=== PATIENT | male | born 1975 | race Caucasian/White ===

== ENCOUNTER 2018-05-29 11:02 | Emergency (ER) | payer OTHER ==
[2018-05-29] MEDS: KETOROLAC 30 MG INJ IM (12:27)
[2018-05-29 12:51] LABS: ADD UMIC NO; UR ASCORBIC ACID NEGATIVE (NEGATIVE); UR BILIRUBIN (Dip) NEGATIVE (NEGATIVE); UR BLOOD (Dip) NEGATIVE (NEGATIVE); UR CLARITY CLEAR (CLEAR); UR COLOR YELLOW (YELLOW); UR GLUCOSE (Dip) NEGATIVE (NEGATIVE); UR KETONES (Dip) NEGATIVE (NEGATIVE); UR LEUKOCYTE ESTERASE (Dip) NEGATIVE Leu/ul (NEGATIVE); UR NITRITE (Dip) NEGATIVE (NEGATIVE); UR TOTAL PROTEIN (Dip) NEGATIVE (NEGATIVE); UR UROBILINOGEN (Dip) NEGATIVE (NEGATIVE)
== END 2018-05-29 13:45 | disposition home or self-care (01) ==
LOC: FTE 11:02
DX: M54.42 Lumbago with sciatica, left side (principal); M54.41 Lumbago with sciatica, right side
CPT/HCPCS: 72131; 81003; 96372; 99285-25

== ENCOUNTER 2018-08-05 12:06 | Emergency (ER) | payer SELFPAY, OTHER | END 2018-08-05 12:44 | disposition home or self-care (01) | LOC: FTE 12:06 | DX: R21 Rash and other nonspecific skin eruption (principal) | CPT/HCPCS: 99283 ==

== ENCOUNTER 2019-05-24 15:04 | Inpatient (IN) | payer MEDICAID, OTHER ==
[2019-05-24 15:56] LABS: ADD MAN DIFF? NO
[2019-05-24 16:04] LABS: WHITE BLOOD COUNT 5.3 10^3/ul (4.8-10.8)
[2019-05-24 16:04] LABS: ABNORMAL IP MESSAGE 1; BASOPHILS % 0.6 % (0.0-2.0); EOSINOPHILS # 0.1 10^3/ul (0.0-0.5); EOSINOPHILS % 1.5 % (0.0-7.0); HEMATOCRIT 42.9 % (42.0-52.0); HEMOGLOBIN 14.9 g/dl (14.0-18.0); LYMPHOCYTES # 1.5 10^3/ul (0.8-2.9); LYMPHOCYTES % 27.9 % (15.0-51.0); MEAN CORPUSCULAR HEMOGLOBIN 31.4 pg (29.0-33.0); MEAN CORPUSCULAR HGB CONC 34.7 g/dl (32.0-37.0); MEAN CORPUSCULAR VOLUME 90.5 fl (82.0-101.0); MEAN PLATELET VOLUME 13.2 fl (7.4-10.4); MONOCYTE # 0.5 10^3/ul (0.3-0.9); MONOCYTES % 9.5 % (0.0-11.0); NEUTROPHIL # 3.2 10^3/ul (1.6-7.5); NEUTROPHILS % 60.3 % (39.0-77.0); PLATELET COUNT 179 10^3/UL (140-415); POSITIVE DIFF @See below; RED BLOOD COUNT 4.74 10^6/ul (4.70-6.10); RED CELL DISTRIBUTION WIDTH 11.7 % (11.5-14.5)
[2019-05-24 16:19] LABS: ADD UMIC NO; UR ASCORBIC ACID NEGATIVE (NEGATIVE); UR BILIRUBIN (Dip) NEGATIVE (NEGATIVE); UR BLOOD (Dip) NEGATIVE (NEGATIVE); UR CLARITY CLEAR (CLEAR); UR COLOR COLORLESS (YELLOW); UR GLUCOSE (Dip) 3+ mg/dL (NEGATIVE); UR KETONES (Dip) TRACE mg/dL (NEGATIVE); UR LEUKOCYTE ESTERASE (Dip) NEGATIVE Leu/ul (NEGATIVE); UR NITRITE (Dip) NEGATIVE (NEGATIVE); UR SPECIFIC GRAVITY (Dip) 1.024 (1.003-1.030); UR TOTAL PROTEIN (Dip) NEGATIVE (NEGATIVE); UR UROBILINOGEN (Dip) NEGATIVE (NEGATIVE)
[2019-05-24 16:24] LABS: ANION GAP 10 (5-13); BLOOD UREA NITROGEN 13 mg/dl (7-20); CALCIUM 9.4 mg/dl (8.4-10.2); CARBON DIOXIDE 23 mmol/L (21-31); CHLORIDE 93 mmol/L (97-110); CREATININE 0.71 mg/dl (0.61-1.24); Estimated GFR > 60 mL/min (>60); POTASSIUM 4.2 mmol/L (3.5-5.1); SODIUM 126 mmol/L (135-144)
[2019-05-24] MEDS: SOD CHLORIDE 0.9% 800 ML IV (16:26)
[2019-05-24 16:42] LABS: GLUCOSE 820 mg/dl (70-220)
[2019-05-24] MEDS ORDERED: INSULIN REGULAR 10 ML INJ IV (16:45)
[2019-05-24] MEDS: SOD CHLORIDE 0.9% 1,000 ML IV (16:57)
[2019-05-24] MEDS ORDERED: GLUCAGON 1 MG INJ IM ×2 (17:00→23:45)
[2019-05-24] MEDS ORDERED: GLUCOSE GEL 15 GRAM TUBE PO ×4 (17:00→23:45)
[2019-05-24] MEDS ORDERED: DEXTROSE 50% 50 ML SYRINGE IV ×6 (17:00→23:45)
[2019-05-24] MEDS ORDERED: GLUCOSE GEL 15 GRAM TUBE BUCCAL ×2 (17:00→23:45)
[2019-05-24] MEDS: INSULIN REGULAR, HUMAN 100 UNIT/1 ML 3ML VIAL IV (17:03)
[2019-05-24] MEDS: LACTATED RINGER'S 1,000 ML IV (17:48)
[2019-05-24] MEDS ORDERED: ALBUTEROL/IPRATROPIUM (NEB) 3 ML AMP HHN (19:00)
[2019-05-24] MEDS ORDERED: hydrALAzine 20 MG INJ IV (19:00)
[2019-05-24] MEDS ORDERED: DOCUSATE SODIUM 100 MG CAP PO (19:00)
[2019-05-24] MEDS ORDERED: INSULIN HUMAN REGULAR 100 UNIT in SOD CHLORIDE 0.9% 99 ML IV (19:00)
[2019-05-24] MEDS ORDERED: morphine 2 MG INJ IV (19:00)
[2019-05-24] MEDS ORDERED: NACL 0.9% 3 ML SYG IV (19:00)
[2019-05-24] MEDS ORDERED: NITROGLYCERIN (SL) 0.4 MG TAB SL (19:00)
[2019-05-24] MEDS: ACCU-CHEK XX (19:00)
[2019-05-24] MEDS ORDERED: ONDANSETRON 4 MG INJ IV (19:00)
[2019-05-24] MEDS ORDERED: MAGNESIUM HYDROXIDE 30ML CUP PO (19:00)
[2019-05-24] MEDS ORDERED: ACETAMINOPHEN 325 MG TAB PO (19:00)
[2019-05-24] MEDS ORDERED: HYDROCODONE/APAP (5/325) TAB PO (19:00)
[2019-05-24] MEDS ORDERED: LORAZEPAM 2 MG INJ IV (19:00)
[2019-05-24 19:56] LABS: INR 0.96; PROTIME 12.9 Sec (11.9-14.9)
[2019-05-24 19:57] LABS: PARTIAL THROMBOPLASTIN TIME 24.3 Sec (23.0-35.0)
[2019-05-24 20:14] LABS: FREE T4 (FREE THYROXINE) 1.35 ng/dl (0.64-1.79)
[2019-05-24 20:16] LABS: HEMOGLOBIN A1C 12.5 % (0-5.9)
[2019-05-24 21:39] LABS: ANION GAP 6 (5-13); BLOOD UREA NITROGEN 11 mg/dl (7-20); CALCIUM 8.9 mg/dl (8.4-10.2); CARBON DIOXIDE 25 mmol/L (21-31); CHLORIDE 104 mmol/L (97-110); CREATININE 0.57 mg/dl (0.61-1.24); Estimated GFR > 60 mL/min (>60); GLUCOSE 323 mg/dl (70-220); POTASSIUM 3.8 mmol/L (3.5-5.1); SODIUM 135 mmol/L (135-144)
[2019-05-25] MEDS: SOD CHLORIDE 0.9% 1,000 ML IV ×4 (00:03→09:09)
[2019-05-25] MEDS: HEPARIN 5,000 UNIT/1 ML VIAL SC ×3 (00:03→20:17)
[2019-05-25] MEDS: INSULIN GLARGINE [LANTus] (100 UNITS/ML) SYG SC ×2 (00:24→20:17)
[2019-05-25] MEDS: ACCU-CHEK XX ×2 (02:15→21:31)
[2019-05-25] MEDS: PANTOPRAZOLE (EC) 40 MG TAB PO (05:39)
[2019-05-25 05:45] LABS: ADD MAN DIFF? NO
[2019-05-25 05:52] LABS: WHITE BLOOD COUNT 5.8 10^3/ul (4.8-10.8)
[2019-05-25 05:52] LABS: BASOPHILS % 0.3 % (0.0-2.0); EOSINOPHILS # 0.1 10^3/ul (0.0-0.5); EOSINOPHILS % 2.3 % (0.0-7.0); HEMATOCRIT 41.2 % (42.0-52.0); HEMOGLOBIN 13.9 g/dl (14.0-18.0); LYMPHOCYTES # 2.2 10^3/ul (0.8-2.9); LYMPHOCYTES % 37.8 % (15.0-51.0); MEAN CORPUSCULAR HEMOGLOBIN 31.3 pg (29.0-33.0); MEAN CORPUSCULAR HGB CONC 33.7 g/dl (32.0-37.0); MEAN CORPUSCULAR VOLUME 92.8 fl (82.0-101.0); MEAN PLATELET VOLUME 12.8 fl (7.4-10.4); MONOCYTE # 0.6 10^3/ul (0.3-0.9); MONOCYTES % 10.1 % (0.0-11.0); NEUTROPHIL # 2.8 10^3/ul (1.6-7.5); NEUTROPHILS % 49.3 % (39.0-77.0); PLATELET COUNT 167 10^3/UL (140-415); RED BLOOD COUNT 4.44 10^6/ul (4.70-6.10); RED CELL DISTRIBUTION WIDTH 11.8 % (11.5-14.5)
[2019-05-25 06:02] LABS: HEMOGLOBIN A1C 12.4 % (0-5.9)
[2019-05-25 06:19] LABS: ANION GAP 5 (5-13); BLOOD UREA NITROGEN 11 mg/dl (7-20); CALCIUM 8.5 mg/dl (8.4-10.2); CARBON DIOXIDE 25 mmol/L (21-31); CHLORIDE 105 mmol/L (97-110); CREATININE 0.55 mg/dl (0.61-1.24); Estimated GFR > 60 mL/min (>60); GLUCOSE 280 mg/dl (70-220); MAGNESIUM 1.7 mg/dl (1.7-2.5); PHOSPHORUS 2.6 mg/dl (2.5-4.9); POTASSIUM 3.6 mmol/L (3.5-5.1); SODIUM 135 mmol/L (135-144)
[2019-05-25 06:31] LABS: CHOLESTEROL 159 mg/dl (100-200)
[2019-05-25 06:31] LABS: CHOL/HDL RATIO 6.3 RATIO; HDL CHOLESTEROL 25 mg/dl (27-67); LDL CHOLESTEROL,CALCULATED 94 mg/dl; TRIGLYCERIDES 199 mg/dl (0-149)
[2019-05-25] MEDS: INSULIN ASPART [NOVOLOG] 3 ML PEN SC ×6 (09:08→20:21)
[2019-05-25] MEDS: metFORMIN 500 MG TAB PO (18:19)
[2019-05-25] MEDS ORDERED: INSULIN GLARGINE [LANTus] (100 UNITS/ML) SYG SC (21:00)
[2019-05-26 05:09] LABS: ADD MAN DIFF? NO
[2019-05-26 05:13] LABS: WHITE BLOOD COUNT 5.7 10^3/ul (4.8-10.8)
[2019-05-26 05:13] LABS: BASOPHILS % 0.5 % (0.0-2.0); EOSINOPHILS # 0.1 10^3/ul (0.0-0.5); EOSINOPHILS % 1.6 % (0.0-7.0); HEMATOCRIT 42.2 % (42.0-52.0); HEMOGLOBIN 14.4 g/dl (14.0-18.0); LYMPHOCYTES # 1.8 10^3/ul (0.8-2.9); MEAN CORPUSCULAR HEMOGLOBIN 31.4 pg (29.0-33.0); MEAN CORPUSCULAR HGB CONC 34.1 g/dl (32.0-37.0); MEAN CORPUSCULAR VOLUME 92.1 fl (82.0-101.0); MEAN PLATELET VOLUME 12.7 fl (7.4-10.4); MONOCYTE # 0.5 10^3/ul (0.3-0.9); MONOCYTES % 8.3 % (0.0-11.0); NEUTROPHIL # 3.2 10^3/ul (1.6-7.5); NEUTROPHILS % 57.2 % (39.0-77.0); PLATELET COUNT 181 10^3/UL (140-415); RED BLOOD COUNT 4.58 10^6/ul (4.70-6.10); RED CELL DISTRIBUTION WIDTH 11.8 % (11.5-14.5)
[2019-05-26 05:39] LABS: ANION GAP 5 (5-13); BLOOD UREA NITROGEN 12 mg/dl (7-20); CARBON DIOXIDE 27 mmol/L (21-31); CHLORIDE 104 mmol/L (97-110); CREATININE 0.62 mg/dl (0.61-1.24); Estimated GFR > 60 mL/min (>60); GLUCOSE 212 mg/dl (70-220); POTASSIUM 3.5 mmol/L (3.5-5.1); SODIUM 136 mmol/L (135-144)
[2019-05-26] MEDS: PANTOPRAZOLE (EC) 40 MG TAB PO (05:42)
[2019-05-26] MEDS: metFORMIN 500 MG TAB PO (07:56)
[2019-05-26] MEDS: INSULIN ASPART [NOVOLOG] 3 ML PEN SC ×4 (07:57→12:50)
[2019-05-26] MEDS: HEPARIN 5,000 UNIT/1 ML VIAL SC (07:59)
== END 2019-05-26 15:45 | disposition home or self-care (01) | DRG 639 ==
LOC: FTE 15:04 → MS1 18:43
DX: E11.00 Type 2 diabetes mellitus with hyperosmolarity without nonketotic hyperglycemic-hyperosmolar coma (NKHHC) (principal); E11.65 Type 2 diabetes mellitus with hyperglycemia; Z79.4 Long term (current) use of insulin
CPT/HCPCS: 36415; 80048; 80061; 81003; 82962; 83036; 83735; 84100; 84439; 84443; 85025; 85610; 85730; 96374; 99285-25